=== PATIENT | male | born 1955 | race Caucasian/White ===

== ENCOUNTER → 2021-07-24 | Day surgery (SDC) | payer MEDICARE, MEDICAID ==
[~2021-07-24] MED LIST: ASPI-1497 PO; ATOR20TA PO; BUPR300T52 PO; CLOP75TA4 PO; DESV50TA4 PO; ESTR2TAB PO; FAMO-134 PO; FENTANYL CITRATE/PF 50MCG/ML 2ML VIAL ONE; HEPARIN SODIUM 1,000 UNIT/1ML VIAL IV ONE; IODIXANOL 320MG/ML 100 ML BOTTLE IV ONE; LIDOCAINE HCL 1% 20ML VIAL (Pyxis) INJ ONE; MIDAZOLAM HCL 2 MG/2 ML VIAL ONE; NICARDIPINE 100MCG/ML 10ML VIAL (CATH LAB) IV ONE; NITROGLYCERIN 50MCG/ML 10ML VIAL (CATH LAB) IV ONE; SPIR25TA6 PO
== END | disposition home or self-care (01) ==
LOC: CCL 11:23
PROVIDERS: ATTEND Specialist
DX: R93.1 Abnormal findings on diagnostic imaging of heart and coronary circulation (principal); I25.10 Atherosclerotic heart disease of native coronary artery without angina pectoris; I10 Essential (primary) hypertension; E78.5 Hyperlipidemia, unspecified; F32.9 Major depressive disorder, single episode, unspecified; Z79.82 Long term (current) use of aspirin; Z79.899 Other long term (current) drug therapy; Z98.890 Other specified postprocedural states
CPT/HCPCS: 85347; 93005; 93458; 93571; 99152; 99153; C1769; C1887; C1893; J1644; J2250; J3010; J3490; Q9967; G0500